=== PATIENT | male | born 2000 | race Caucasian/White ===

== ENCOUNTER 2018-09-12 23:28 | Emergency (ER) | payer MEDICAID ==
[~2018-09-12] VITALS: Ht 170.2 cm; Wt 69.4 kg
[2018-09-12 23:37] VITALS: Ht 170.2 cm; Wt 69.4 kg
[2018-09-13 00:03] VITALS: BP 127/72
== END 2018-09-13 00:03 | disposition home or self-care (01) ==
LOC: ED 23:28
DX: Z13.89 Encounter for screening for other disorder (principal); H57.89 Other specified disorders of eye and adnexa

== ENCOUNTER 2019-06-12 14:16 | Emergency (ER) | payer MEDICAID ==
[~2019-06-12] VITALS: Ht 170.2 cm; Wt 71.2 kg
[2019-06-12 14:32] VITALS: Ht 170.2 cm; Wt 71.2 kg
[2019-06-12 16:11] LABS: BASOPHIL % 0.3 % (0-2); PLATELET COUNT 223 x10^3mcL (130-400); RED CELL DISTRIBUTION WIDTH 13.5 % (11.5-14.5)
[2019-06-12 16:29] LABS: CALCIUM 8.6 mg/dL (8.5-10.1); CARBON DIOXIDE 28.3 mmol/L (21-32); CHLORIDE SERUM 104 mmol/L (98-107); CREATININE SERUM 1.2 mg/dL (0.7-1.3); GFR1 > 60 mL/min; GLUCOSE SERUM 90 mg/dL (74-106); POTASSIUM SERUM 4.1 mmol/L (3.5-5.1); SODIUM SERUM 140 mmol/L (136-145)
[2019-06-12 18:23] VITALS: BP 121/66
== END 2019-06-12 18:23 | disposition home or self-care (01) ==
LOC: ED 14:16
PROVIDERS: Emergency Medicine
DX: N50.89 Other specified disorders of the male genital organs (principal); N50.1 Vascular disorders of male genital organs; K40.90 Unilateral inguinal hernia, without obstruction or gangrene, not specified as recurrent
CPT/HCPCS: 36415; Q9967

== ENCOUNTER 2019-08-09 10:06 | Emergency (ER) | payer OTHER ==
[~2019-08-09] VITALS: Ht 170.2 cm; Wt 69.9 kg
[2019-08-09 10:29] VITALS: BP 112/70; Ht 170.2 cm; Wt 69.9 kg
== END 2019-08-09 12:01 | disposition home or self-care (01) ==
LOC: ED 10:06
DX: S91.201A Unspecified open wound of right great toe with damage to nail, initial encounter (principal); X58.XXXA Exposure to other specified factors, initial encounter; Y93.67 Activity, basketball; Y92.310 Basketball court as the place of occurrence of the external cause; Y99.8 Other external cause status
CPT/HCPCS: 90715; J2001